=== PATIENT | female | born 1995 | race Caucasian/White ===

== ENCOUNTER 2018-01-23 08:25 | Outpatient (CLI) | payer SELFPAY | END 2018-01-23 08:26 | disposition home or self-care (01) | LOC: BICRAD 08:25 | PROVIDERS: ATTEND Surgery | DX: Z01.818 Encounter for other preprocedural examination (principal); E66.01 Morbid (severe) obesity due to excess calories | CPT/HCPCS: 71046 ==

== ENCOUNTER 2018-01-23 16:06 | Outpatient (CLI) | payer OTHER ==
--- NOTE | 2018-01-24 12:55 | EKG ---
Test Reason : Blood Pressure : / mmHG Vent. Rate : 061 BPM Atrial Rate : 061 BPM P-R Int : 140 ms QRS Dur : 096 ms QT Int : 440 ms P-R-T Axes : 025 040 024 degrees QTc Int : 442 ms Normal sinus rhythm with sinus arrhythmia Incomplete right bundle branch block Borderline ECG Confirmed by JOHANA CALLOWAY ([id number]) on 01/24/2018 12:55:26 PM Referred By: JOVANI Confirmed By:JOHANA CALLOWAY
== END 2018-01-23 16:07 | disposition home or self-care (01) ==
LOC: LABBT 16:06
PROVIDERS: ATTEND Surgery
DX: Z01.818 Encounter for other preprocedural examination (principal); E66.01 Morbid (severe) obesity due to excess calories
CPT/HCPCS: 93005; 93010

== ENCOUNTER 2018-01-23 16:15 | Inpatient (IN) | payer OTHER ==
[2018-01-30] MEDS ORDERED: Scopolamine 1.5 mg/72 hour Patch ONE (06:22)
[2018-01-30] MEDS ORDERED: Heparin 5,000 UNITS/ML VIAL ONE (06:22)
[2018-01-30] MEDS ORDERED: CEFAZOLIN/Water 2 GM/20 ML SYRINGE ONE (06:22)
--- NOTE | 2018-01-30 07:00 | HP ---
CHIEF COMPLAINT: Morbid obesity. HISTORY: The patient is a 22-year-old female who has been overweight for many years. She has attemp cielo multiple weight loss programs without success. She is here for sleeve gastrectomy. PAST MEDICAL HISTORY: Significant for otherwise being healthy. PAST SURGICAL HISTORY: None. MEDICATIONS: None. ALLERGIES: She has allergies to SULFA. FAMILY HISTORY: Father is . Mother is alive. Hypertension runs in the family. PHYSICAL EXAMINATION: VITAL SIGNS: Height 63, weight 230, body mass index 40.74. Blood pressure 124/81, pulse 59. GENERAL: Well-developed, well-nourished female in no apparent distress. HEENT: Pupils equal, round, and reactive. Extraocular motor intact. Pharynx clear. Good dentition . NECK: Supple, no thyroid masses, no carotid bruits. LUNGS: Clear. HEART: Regular rate and rhythm. BREASTS: There are no palpable breast masses or lymphadenopathy. ABDOMEN: Soft, nondistended, nontender, good bowel sounds, no palpable masses or hernias. BACK: No tenderness or deformity. EXTREMITIES: Good pulses. No pedal edema. ASSESSMENT: Morbid obesity. PLAN: Laparoscopic sleeve gastrectomy. CONSENT: I have discussed the planned procedure as well as risk of bleeding, infection, injury to es ophagus, spleen, loops of bowel, need to open and also leakage from staple line. She understands and gives informed consent.
[2018-01-30] MEDS ORDERED: Fentanyl 250 MCG/5 ML VIAL ONE (07:05)
[2018-01-30] MEDS ORDERED: Bupivacaine HCl 0.25%/Epi 0.0005/PF 10 ML VIAL FS ONE ×2 (07:17)
[2018-01-30] MEDS ORDERED: Midazolam HCl 2 mg/2 ml Vial ONE (07:19)
[2018-01-30] MEDS ORDERED: Dextrose 50% Abboject 50 ML SYRINGE SLOW IVP PRN (08:42)
[2018-01-30] MEDS ORDERED: SUGAMMADEX SODIUM 500 MG/5 ML VIAL ONE (08:42)
[2018-01-30] MEDS ORDERED: diphenhydrAMINE 50 MG/ML VIAL IVP PRN ×2 (08:42→09:08)
[2018-01-30] MEDS ORDERED: Ondansetron HCl/PF 4 MG/2 ML Vial IVP PRN ×3 (08:42→09:08)
[2018-01-30] MEDS ORDERED: Dextrose 5% in Water 1,000 ML IV PRN (08:42)
[2018-01-30] MEDS ORDERED: hydrALAZINE 20 MG/ML VIAL SLOW IVP PRN (08:42)
[2018-01-30] MEDS ORDERED: Promethazine HCl 25 MG/ML VIAL IM PRN ×2 (08:42→09:00)
[2018-01-30] MEDS ORDERED: Hydrocodone-Acetamin 15 ML UDCUP PO PRN ×2 (08:42→09:11)
--- NOTE | 2018-01-30 08:53 | OP ---
DATE OF PROCEDURE: 01/30/2018 PREOPERATIVE DIAGNOSIS: Morbid obesity. SURGEON: Sushant Persaud M.D. PROCEDURE: Laparoscopic sleeve gastrectomy, esophagogastroscopy. INDICATIONS: A 22-year-old female, morbidly obese, who has attempted multiple weight loss programs [facility] success. FINDINGS: A 38 Polish bougie used. PROCEDURE IN DETAIL: After informed consent was obtained, the patient was taken to the operating isabella m and given general endotracheal anesthesia. She was placed in the supine position. The abdomen was prepped and draped in usual fashion. Local anesthesia infiltrated subcutaneously and deep. A 12 mm incision was performed approximately 8 inches above the xiphoid slightly to the left. Veress needle inserted. Drop test performed. Pneumoperitoneum was created to a pressure of 15 mmHg and the patie nt placed in steep reverse Trendelenburg position. Nathansen liver retractor inserted. Left lobe of liver retracted superiorly. Pylorus identified. A 12 mm port placed on the right beneath it and tw o 12s placed left subcostal. The omentum was taken off the greater curvature 5 cm from the pylorus u tilizing the LigaSure. Short gastrics divided with LigaSure and the left crura defined with the Liga Sure. A 38-Polish bougie inserted directed into the antrum. The linear 60 mm green load stapler use d to divide the antrum to the bougie, gold load along the bougie, and a series of blues through the a ngle of His. Intraoperative endoscopy was performed. The video endoscope inserted under direct visi on and advanced into the sleeve. Staple line inspected. There was no bleeding. Staple line then te sted by inflating the new stomach with pressurized air under water. There was no air leak. Stomach decompressed. Scope removed. The remnant stomach removed from the abdomen through the left lateral port site. The fascia was closed with 0 Vicryl suture and the GraNee. Hemostasis was assured. Troc ars and retractors removed. Skin closed with interrupted 4-0 Rapide. Dermabond applied. The patien t tolerated the procedure well and was transferred to recovery in good condition. Sponge and needle count verified correct x2.
[2018-01-30] MEDS ORDERED: Meperidine HCl/PF 25 MG/ML VIAL ONE (08:56)
[2018-01-30] MEDS ORDERED: Morphine Sulfate 2 MG/ML SYRINGE SLOW IVP PRN (09:00)
[2018-01-30] MEDS ORDERED: Promethazine HCl 25 MG/ML VIAL SLOW IVP PRN (09:00)
[2018-01-30] MEDS ORDERED: Ketorolac Tromethamine 30 MG/ML VIAL ONE ×2 (09:01→13:45)
[2018-01-30] MEDS ORDERED: diphenhydrAMINE 50 MG/ML VIAL IM PRN (09:08)
[2018-01-30] MEDS ORDERED: Zolpidem Tartrate 5 MG TAB PO PRN (09:08)
[2018-01-30] MEDS ORDERED: Naloxone HCl 0.4 mg/ml Vial IV PRN (09:08)
[2018-01-30] MEDS ORDERED: diphenhydrAMINE 25 MG CAP PO PRN (09:08)
[2018-01-30] MEDS ORDERED: fentaNYL Citrate/PF 2,000 MCG in Sodium Chloride 0.9% 60 ML IV PRN (09:08)
[2018-01-30] MEDS ORDERED: Communication Order-Pharmacy FS SCH (09:15)
[2018-01-30] MEDS ORDERED: Fentanyl 100 MCG/2 ML VIAL ONE (09:34)
[2018-01-30] MEDS: Ketorolac Tromethamine 30 MG/ML VIAL IVP SCH ×3 (11:39→23:46)
[2018-01-30] MEDS: D5 1/2 NS w/20 mEq KCL 1,000 ML IV SCH ×2 (11:40→18:56)
[2018-01-30 12:45] VITALS: BMI 38.2
[2018-01-30] MEDS ORDERED: Lidocaine 1% PF 5 ML VIAL ONE (13:45)
[2018-01-30] MEDS ORDERED: PROPOFOL 200 MG/20 ML VIAL ONE (13:45)
[2018-01-30] MEDS ORDERED: Succinylcholine Chloride 20 MG/ML 10 ml SYRINGE FS ONE (13:45)
[2018-01-30] MEDS ORDERED: Ondansetron HCl/PF 4 MG/2 ML Vial ONE (13:45)
[2018-01-30] MEDS ORDERED: Dexamethasone 20 MG/5 ML VIAL ONE (13:45)
[2018-01-30] MEDS ORDERED: Glycopyrrolate 0.2 MG/ML 5 ML SYRINGE ONE (13:45)
[2018-01-30] MEDS: CEFAZOLIN/Water 2 GM/20 ML SYRINGE SLOW IVP SCH ×2 (15:23→23:46)
[2018-01-30] MEDS: Promethazine HCl 25 MG/ML VIAL IM PRN ×2 (15:24→19:07)
[2018-01-30] MEDS: Pantoprazole 40 MG VIAL IVP SCH (16:11)
[2018-01-31] MEDS: D5 1/2 NS w/20 mEq KCL 1,000 ML IV SCH ×2 (03:28→10:36)
[2018-01-31] MEDS ORDERED: Enoxaparin Sodium 40 MG/0.4 ML SYRINGE SC SCH ×2 (06:00→09:00)
[2018-01-31] MEDS: Ketorolac Tromethamine 30 MG/ML VIAL IVP SCH ×2 (06:04→12:10)
[2018-01-31 06:45] LABS: #Lymphocytes 2.1 thou/uL (1.20-3.40); #Monocytes 0.7 thou/uL (0.11-0.59); #Neutrophils 7.4 thou/uL (1.40-6.50); %Basophils 0.2 % (0.0-1.0); %Eosinophils 0.1 % (0.0-10.0); %Lymphocytes 20.7 % (21.0-51.0); %Monocytes 6.6 % (0.0-10.0); %Neutrophils 72.3 % (42.0-75.0); Hemoglobin 12.2 g/dL (12.0-16.0); Mean Corpuscular HGB CONC 33.8 g/dL (32.0-36.0); Mean Corpuscular Hemoglobin 29.6 pg (27.0-31.0); Mean Corpuscular Volume 87.5 fL (78.0-98.0); Mean Platelet Volume 7.7 fL (7.4-10.4); Platelet Count 226 thou/uL (130-400); RBC Distribution Width 12.9 % (11.5-14.5); Red Blood Cell (RBC) Count 4.12 mill/uL (4.20-5.40); White Blood Cell (WBC) Count 10.2 thou/uL (4.8-10.8)
[2018-01-31 06:54] LABS: Anion Gap 10 mmol/L (10-20); BUN (Urea Nitrogen) 5 mg/dL (7.0-18.7); Calc. Creatinine Clearance 204 mL/min (70-130); Calcium 8.9 mg/dL (7.8-10.44); Carbon Dioxide 24 mmol/L (22-29); Chloride 108 mmol/L (98-107); Estimated GFR-MDRD Greater than 90; Glucose 122 mg/dL (70-105); Sodium 138 mmol/L (136-145)
--- NOTE | 2018-01-31 08:29 | RAD ---
ESOPHAGRAM: HISTORY: Bariatric surgery. FINDINGS: Single-column contrast evaluation shows postoperative changes of the stomach consistent with gastric sleeve/bypass. IMPRESSION: There is no evidence of obstruction or leak. POS: [facility]
[2018-01-31] MEDS: Pantoprazole 40 MG VIAL IVP SCH (08:50)
[2018-01-31] MEDS ORDERED: Hydrocodone-Acetamin 15 ML UDCUP PO PRN (08:52)
[2018-01-31 11:42] VITALS: BP 104/73; TEMP 98
--- NOTE | 2018-02-01 01:09 | DIS ---
DISCHARGE DIAGNOSIS: Morbid obesity. PROCEDURES DURING ADMISSION: Laparoscopic sleeve gastrectomy, intraoperative esophagogastroscopy, po stoperative Gastrografin swallow. HOSPITAL COURSE: The patient was admitted, taken to the operating room where she underwent a sleeve gastrectomy. Postoperatively, she has done well. Her initial swallow study was normal. She was sta rted on liquid. She was tolerating it well. She was discharged home on hydrocodone and Zofran. She will follow up with me in 2 weeks.
[2018-02-01] MEDS ORDERED: Enoxaparin Sodium 40 MG/0.4 ML SYRINGE SC SCH (09:00)
== END 2018-01-31 15:05 | disposition home or self-care (01) | DRG 621 ==
LOC: SURG A 01-30 06:03 → SURG B 01-30 10:28
PROVIDERS: ADMIT Surgery; ATTEND Surgery
PROC: 0DB64Z3 Excision of Stomach, Percutaneous Endoscopic Approach, Vertical (ICD-10-PCS; principal; 2018-01-30)
DX: E66.01 Morbid (severe) obesity due to excess calories (principal); Z68.38 Body mass index [BMI] 38.0-38.9, adult
CPT/HCPCS: 36415; 74241; 80048; 85025; 88307; 88312; 94760; C9113; J1100; J1644; J1650; J1885; J2001; J2175; J2250; J2405; J2550; J2704; J3010; J7050

== ENCOUNTER 2018-01-24 10:56 | Outpatient (CLI) | payer OTHER | END 2018-01-24 10:57 | disposition home or self-care (01) | LOC: DTY/OP 10:56 | PROVIDERS: ATTEND Surgery | DX: E66.01 Morbid (severe) obesity due to excess calories (principal) | CPT/HCPCS: 97802 ==

== ENCOUNTER 2018-06-12 21:06 | Emergency (ER) | payer OTHER, SELFPAY ==
--- NOTE | 2018-06-12 22:44 | CT ---
CT CERVICAL SPINE WITHOUT CONTRAST: 06/12/2018 HISTORY: Pain. Injury. Trauma. COMPARISON: None. TECHNIQUE: Axial CT imaging at 2.5 mm intervals, through the cervical spine, with coronal and sagittal reformatt ed imaging. FINDINGS: The visualized lung apices are unremarkable. The C1 ring is intact. The occipital condyles, the dens, and the C1-C2 articulation appear within normal limits. The craniocervical junction, the atlantoaxial interspace, and the cervicothoracic junction appear int act as well. No anterolisthesis or retrolisthesis. No prevertebral soft tissue swelling, fracture, or evidence of dislocation. IMPRESSION: No acute findings. POS: [facility]
--- NOTE | 2018-06-12 22:45 | RAD ---
CHEST TWO VIEWS: 06/12/2018 HISTORY: Chest wall pain. FINDINGS: No pneumothorax, pleural fluid, focal consolidation, or alveolar edema. Heart and mediastinal contou rs are unremarkable. There are postoperative clips in the upper abdomen. IMPRESSION: No acute findings. POS: [facility]
== END 2018-06-12 23:03 | disposition home or self-care (01) ==
LOC: ERS 21:06
DX: T14.8XXA Other injury of unspecified body region, initial encounter (principal); V43.52XA Car driver injured in collision with other type car in traffic accident, initial encounter
CPT/HCPCS: 71046; 72125

== ENCOUNTER 2018-09-08 16:38 | Emergency (ER) | payer BC, SELFPAY | END 2018-09-08 20:51 | disposition home or self-care (01) | LOC: ERS 16:38 | DX: R51 Headache (principal); R55 Syncope and collapse | CPT/HCPCS: 36416; 93005 ==